=== PATIENT | male | born 1965 | race Caucasian/White ===

== ENCOUNTER 2021-01-07 14:26 | Outpatient (CLI) | payer BC, SELFPAY ==
--- NOTE | ~2021-01-07 | MR_ITS ---
EXAMINATION: MR humerus LT wo con DATE: 01/07/2021 15:16 INDICATION: Tear of the left biceps muscle post lifting injury TECHNIQUE: Magnetic resonance imaging (MRI) of the left humerus was performed without intravenous con trast. Sequences included axial, sagittal and coronal T1-weighted FSE and fluid sensitive FSE STIR. COMPARISON: None. FINDINGS: Complete tear of the long head biceps tendon which is retracted 10 cm below the level of the cephalad aspect of the intertubercular groove. The proximal side of the tear images above the level of the in tertubercular groove is unable to be definitively visualized shoulder due to the relatively large fie ld-of-view and artifact at the margins of the field of imaging. There is a small fluid collection con sistent with posttreatment hematoma surrounding the torn and retracted tendon and proximal most aspec t of the muscle belly. The remainder of the muscles and tendons including the distal biceps tendon an d the short head tendon appear normal although assessment is again limited at the level of the should er and elbow which are at the margins of the [id number] imaging. Bones are in normal alignment wit h normal marrow signal throughout. No fracture or pathologic marrow replacing process. No joint effus ion at the left elbow or shoulder. No pathologically enlarged left axillary lymphadenopathy. IMPRESSION: 1. Complete tear and distal retraction of the long head biceps tendon. Reviewed, dictated and finalized at location A.
== END 2021-01-07 14:27 | disposition home or self-care (01) ==
PROVIDERS: PCP Internal Medicine
DX: S46.212A Strain of muscle, fascia and tendon of other parts of biceps, left arm, initial encounter (principal)
CPT/HCPCS: 73218